=== PATIENT | female | born 1980 ===

== ENCOUNTER 2016-12-18 04:51 | Emergency (ER) | payer SELFPAY ==
[~2016-12-18] VITALS: Ht 167.6 cm; Wt 68.0 kg
[2016-12-18 04:54] VITALS: BP 174/80; PULSE 60; RESP 16; TEMP 97.9; O2SAT 100
== END 2016-12-18 05:15 | disposition left against medical advice (07) ==
LOC: NEPB 04:51
DX: M79.646 Pain in unspecified finger(s) (principal)
CPT/HCPCS: 99281